=== PATIENT | male | born 1980 ===

== ENCOUNTER 2017-11-06 18:39 | Emergency (ER) | payer OTHER ==
[2017-11-06 20:30] VITALS: BP 187/92; PULSE 87; TEMP 98.1; O2SAT 100
[2017-11-06 21:41] LABS: URINE BILIRUBIN NEGATIVE (NEGATIVE); URINE BLOOD 1+ (NEGATIVE); URINE CLARITY Clear (Clear); URINE COLOR Colorless (YELLOW); URINE GLUCOSE (UA) NORMAL (Normal); URINE LEUKOCYTE ESTERASE NEG Leu/uL (Negative); URINE NITRATE NEGATIVE (NEGATIVE); URINE PROTEIN NEGATIVE (NEGATIVE); URINE UROBILINOGEN NORMAL mg/dL (0.2-1.0)
[2017-11-06] MEDS ORDERED: cefTRIAXone (Rocephin) 250 mg Inj IM STA (21:57)
--- NOTE | 2017-11-06 22:30 | C.PDOC ---
History Of Present Illness 37 year old male presents to the ED for evaluation of dysuria x2 weeks. Patient reports 1 episode of hematuria last week. He denies abd pain. He states that he has not been sexually active for a long time. No penile lesions. No other acute complaints. Time Seen by Provider: 11/06/17 20:40 Chief Complaint (Nursing): Male Genitourinary History Per: Patient History/Exam Limitations: no limitations Onset/Duration Of Symptoms: Days Current Symptoms Are (Timing): Still Present Quality Of Discomfort: Burning Associated Symptoms: Urinary Symptoms Past Medical History Reviewed: Historical Data, Nursing Documentation, Vital Signs Vital Signs: Last Vital Signs Temp 98.1 F 11/06/17 20:26 Pulse 87 11/06/17 20:26 Resp 20 11/06/17 22:40 BP 187/92 H 11/06/17 20:26 Pulse Ox 100 11/06/17 22:30 Family History: States: Unknown Family Hx - Social History Hx Alcohol Use: Yes Hx Substance Use: No Review Of Systems Except As Marked, All Systems Reviewed And Found Negative. Constitutional: Negative for: Fever, Chills ENT: Negative for: Ear Pain, Throat Pain Cardiovascular: Negative for: Chest Pain Respiratory: Negative for: Shortness of Breath Gastrointestinal: Negative for: Nausea, Vomiting, Abdominal Pain, Diarrhea Genitourinary: Positive for: Dysuria, Hematuria. Negative for: Penile Discharge Skin: Negative for: Rash Neurological: Negative for: Headache Physical Exam - Physical Exam Appears: Well, No Acute Distress Skin: Normal Color, Warm, Dry Head: Atraumatic, Normacephalic Eye(s): bilateral: Normal Inspection, PERRL, EOMI Oral Mucosa: Moist Neck: Normal, Normal ROM, Supple Gastrointestinal/Abdominal: Normal Exam, Soft, No Tenderness Back: Normal Inspection Male Genital: No Testicular Tenderness, No Testicular Swelling, Other (no discharge, no lesions) Extremity: Normal ROM, No Deformity Neurological/Psych: Oriented x3, Normal Speech ED Course And Treatment O2 Sat by Pulse Oximetry: 100 Medical Decision Making Medical Decision Making: UA and urine culture sent. Patient will be treated for urethritis and started on rocephin and zithromax and discharged home Disposition - Disposition Referrals: PMD, Private doctor [Other] Disposition: HOME/ ROUTINE Disposition Time: 22:28 Condition: STABLE Additional Instructions: Follow up with PMD for referral to UROLOGY as neede Return to ER if worse Instructions: Urethritis (DC) Forms: [facility] (German) - Clinical Impression Clinical Impression: Urethritis - Scribe Statement The provider has reviewed the documentation as recorded by the Scribe The provider has reviewed the documentation as recorded by the Scribe (Zoran Galvez)
[2017-11-06 23:04] VITALS: RESP 20
== END 2017-11-06 22:40 | disposition home or self-care (01) ==
LOC: C.ER 18:39
DX: N34.2 Other urethritis (principal)
CPT/HCPCS: 81001; 87491; 87591; 96372; 99284; J0696